=== PATIENT | male | born 1945 | race Caucasian/White ===

== ENCOUNTER 2019-04-28 15:39 | Inpatient (IN) ==
--- NOTE | 2019-04-28 16:48 | EKG Report ---
Test Performed on : 04/28/2019 3:44:11 PM Test Reason : chest pain Blood Pressure : / mmHG Vent. Rate : 070 BPM Atrial Rate : 083 BPM P-R Int : 128 ms QRS Dur : 080 ms QT Int : 370 ms P-R-T Axes : 047 075 069 degrees QTc Int : 399 ms Sinus rhythm. with marked sinus arrhythmia. Nonspecific ST abnormality Abnormal ECG When compared with ECG of 24-MAR-2019 19:27, premature ventricular complexes. are no longer present Nonspecific T wave abnormality, improved in Inferior leads Unconfirmed Result
[2019-04-28 17:53] LABS: BASO# 0.04 X1000 (0.0-0.2); BASO% 0.9 % (0.0-0.8); EOS# 0.27 X1000 (0.0-0.7); EOS% 5.9 % (0.0-10.0); HEMATOCRIT 43.6 % (42.0-52.0); HEMOGLOBIN 14.1 g/dL (14.0-18.0); LYMPH# 1.01 X1000 (1.2-3.4); LYMPH% 21.9 % (20.5-51.1); MCHC 32.3 g/dL (33-37); MCV 92.8 FL (81-99); MONO# 0.39 X1000 (0.11-0.59); MONO% 8.5 % (1.7-9.3); MPV 10.7 FL (7.4-10.4); NEUT% 62.8 % (42.2-75.2); PLT 217 X1000 (130-400); RDW 13.8 % (11.5-14.5); WBC 4.61 X1000 (4.8-10.8)
[2019-04-28] MEDS ORDERED: CATAPRES PO ONE (18:02)
--- NOTE | 2019-04-28 18:12 | PROVIDER DOCUMENTATION ---
This chart was entered by Cesilia Cronin Scribe, acting as scribe for Catherine Graham MD. HPI-Chest Pain - General Source: patient - History of Present Illness-CP Location: reports: central Chest Pain Radiation: reports: no radiation Quality of Pain: reports: pressure Severity in ED: mild Onset/Duration: this morning Timing: still present, improving Context/Activities at Onset: reports: light activity Modifying Factors: improves with: nothing Associated Symptoms: reports: shortness of breath. denies: abdominal pain, back pain, dizziness, fever/chills, nausea, vomiting Nitro Today/Relief: no nitro taken today Aspirin Treatment Today: 325 mg x 1, provided by ED Prior Chest Pain/Cardiac Workup: reports: no prior chest pain Similar Symptoms Previously?: Yes (copd ) Recently Seen Here or By Another Healthcare Provider: Yes (has seen pcp recently) <Catherine Graham - Last Filed: 04/28/19 18:12> <Crow Khoury - Last Filed: 04/28/19 22:26> - General Chief Complaint: Chest Pain Stated Complaint: PRESSURE ON CHEST,COPD,INSOMNIA Time Seen by Provider: 04/28/19 16:21 Allergies/Adverse Reactions: Patient Allergies Allergy/AdvReac Type Severity Reaction Status Date / Time No Known Allergies Allergy Verified 03/20/19 16:40 Home Medications: Home Medication List Medication Instructions Recorded Confirmed Last Taken Type Albuterol Sulfate [Proair Hfa] 2 puff INH PRN PRN 03/20/19 04/28/19 Unknown History Amoxicillin/Potassium Clav 1 tab PO BID 04/28/19 Unknown History [Amox-Clav 500-125 mg Tablet] Methylprednisolone [Medrol Dosepak] 04/28/19 Unknown History Penicillin V Potassium [Penicillin 250 mg PO Q6HR 04/28/19 04/28/19 Unknown History Vk] Pravastatin Sodium 80 mg PO QHS 04/28/19 04/28/19 Unknown History Trazodone HCl 50 mg PO QHS 04/28/19 04/28/19 Unknown History Venlafaxine E.r. [Effexor Xr] 75 mg PO DAILY 04/28/19 04/28/19 Unknown History - History of Present Illness-CP Nature of Presenting Problem: wm presents to the ed with c/o chest pain, sob, insomnia . pt sts he is a recovering alcoholic for 17 years and was given x80 10mg Ambien and between saturday 04/21/04/25 this month he took all his medication. pt sts he can not handle pain medication or sleep aids because he abuses it.pt comes to ed due to chest pressure and insomnia today. sts sob is due to copd and chronic. pt on exam is nontoxic in appearance and is speaking in complete sentence (Catherine Graham) Review of Systems - Adult - REVIEW OF SYSTEMS - ADULT Constitutional: denies: chills, fever Eyes: reports: no symptoms reported Ears, Nose, Mouth & Throat: reports: no symptoms reported Cardiovascular: reports: see HPI, chest pain. denies: palpitations, syncope Respiratory: reports: see HPI, chronic cough, shortness of breath. denies: wheezing Gastrointestinal: denies: abdominal pain, diarrhea, nausea, vomiting Genitourinary: reports: no symptoms reported Musculoskeletal: reports: no symptoms reported Integumentary: reports: no symptoms reported Neurological: denies: dizziness/vertigo, headache/migraines Psychiatric: reports: see HPI, insomnia Endocrine: reports: no symptoms reported Hematologic/Lymphatic: reports: no symptoms reported Allergic/Immunologic: reports: no symptoms reported All Other Systems: Reviewed and Negative <Catherine Graham - Last Filed: 04/28/19 18:12> Past History - Adult - PAST MEDICAL HISTORY-ADULT Review of Records: reports: Old Records Reviewed, Nursing Assessment Review, Medications Reviewed, Social history reviewed & non-contributory. Major Childhood Illnesses: reports: denies history Cardiovascular: reports: HTN (borderline), hyperlipidemia Respiratory: reports: asthma, COPD Gastrointestinal: reports: denies history Genitourinary: reports: kidney stones Musculoskeletal: reports: denies history Hand Dominance: Right Handed Neurological: reports: denies history Psychiatric: reports: anxiety Endocrine/Immune: reports: denies history Other Conditions: reports: denies history - PRIOR SURGERIES/PROCEDURES Surgical/Procedure History: reports: cholecystectomy, orthopedic (extremity) - IMMUNIZATION STATUS Childhood Immunizations: See Nurse Assessment Flu Vaccine: See Nurse Assessment - FAMILY HISTORY Family History: reviewed, not pertinent - SOCIAL HISTORY Smoking: quit greater than 1 year Substance Use: none presently/history of abuse (ETOH and abuses pain medication and sleep aids) Alcohol Use Frequency: sober (former use) Living Situation: alone <Catherine Graham - Last Filed: 04/28/19 18:12> Physical Exam-General - PHYSICAL EXAM-ADULT Initial Vital Signs Reviewed: Yes - CONSTITUTIONAL General Appearance: appears well, alert, no apparent distress (pt is speaking in complete sentences on exam is nontoxic in appearance. pt sts still has mild chest pressure and SOB) - EYES Eyes: PERRL/EOMI, pink conjunctivae - HEAD, EARS, NOSE, MOUTH & THROAT HENMT: moist mucous membranes - NECK Neck: non-tender, full range of motion, supple, normal inspection - RESPIRATORY Respiratory: chest non-tender, lungs clear, normal breath sounds - CARDIOVASCULAR Cardiovascular: normal peripheral pulses, regular rate, rhythm - CHEST (BREASTS) Chest/Breast: no tenderness - GASTROINTESTINAL (ABDOMEN) Abdominal Exam: normal bowel sounds, non tender, soft - LYMPHATIC Lymphatic: no adenopathy - MUSCULOSKELETAL Back Exam: normal inspection, no CVA tenderness, no vertebral tenderness Extremity: normal range of motion, non-tender, normal gait, normal inspection - SKIN Integumentary: normal color, normal turgor, warm/dry - NEUROLOGIC Neurologic: grossly normal - PSYCHIATRIC Psych/Mental Status: normal mood/affect, normal thought content, normal thought process, oriented x 3 <Catherine Graham - Last Filed: 04/28/19 18:12> - HEART Score HEART Score: History: Slightly Suspicious HEART Score: ECG: Normal HEART Score: Age: > or = 65 Years HEART Score: Risk Factors for Atherosclerotic Disease: 1 or 2 Risk Factors HEART Score: Troponin: < or = Normal Limit Total HEART Score:: 3 <Jazmyne Grahamanila Porter - Last Filed: 04/28/19 18:12> Progress - REASSESSMENT Reassessment #1 Time Reassessed: 16:36 Status: improving - EKG 1 Time of EKG reading by physician:: 15:44 EKG Read and Signed by:: Catherine Graham EKG Interpretation (*Must complete 3 of following elements*): Abnormal Rate: 70 Rhythm: sinus rhythm with marked sinus arrhythmia [place]: normal QRS: normal NV Interval: normal ST Wave: normal <Jazmyne Grahami [place] - Last Filed: 04/28/19 18:12> - PLAN OF CARE/RESULTS Result Diagrams: 04/28/19 17:50 04/28/19 17:50 - REASSESSMENT Reassessment #2 Time Reassessed: 20:10 Status: improving (continues to have CP And SOB, CXR results d/w pt. will call hospitalist to discuss CTA as d-dimer can be elevated from PNA.) - CONSULTS/PCP/HOSPITALIST Notification #1 *Consult/PCP/Hospitalist*: Dr Simms Time Discussed: 20:35 Consult Disposition: other (advised CT angiogram to r/o PE. will call back after CTA chest resulted.) #2 Consult: DR Simms Time Discussed: 22:15 Consult Disposition: Admit (saw pt in ED, admit for obs) - CHANGE OF SHIFT REPORT (ED Provider) 1 Report Given and Care Transferred to:: Dr Khoury Time of Transfer: 19:00 Items Pending: Labs, XRAY Results <Crow Khoury - Last Filed: 04/28/19 22:26> - PLAN OF CARE/RESULTS Progress/Plan/Lab Results: Vital Signs - 8 hr 04/28/19 15:44 04/28/19 16:06 04/28/19 16:08 Temperature 98.1 F Pulse Rate 87 77 80 Respiratory Rate 18 13 18 Blood Pressure 177/95 165/101 O2 Sat by Pulse Oximetry 95 93 L 94 L 04/28/19 16:30 04/28/19 17:02 04/28/19 17:31 Temperature Pulse Rate 74 61 76 Respiratory Rate 13 16 18 Blood Pressure 181/101 192/106 O2 Sat by Pulse Oximetry 96 94 L 94 L 04/28/19 17:57 04/28/19 18:01 04/28/19 18:26 Temperature Pulse Rate 64 59 L 68 Respiratory Rate 18 12 19 Blood Pressure 185/107 169/108 164/101 O2 Sat by Pulse Oximetry 93 L 94 L 94 L 04/28/19 18:31 04/28/19 19:06 04/28/19 19:30 Temperature Pulse Rate 73 88 69 Respiratory Rate 20 18 15 Blood Pressure 165/116 131/81 O2 Sat by Pulse Oximetry 93 L 94 L 93 L 04/28/19 20:00 04/28/19 20:30 04/28/19 21:00 Temperature Pulse Rate 66 74 75 Respiratory Rate 19 19 17 Blood Pressure 157/82 142/88 140/74 O2 Sat by Pulse Oximetry 94 L 93 L 93 L Laboratory Results - last 24 hr 04/28/19 04/28/19 04/28/19 17:00 17:50 17:50 WBC 4.61 L RBC 4.70 Hgb 14.1 Hct 43.6 MCV 92.8 MCH 30.0 MCHC 32.3 L RDW Std Deviation 13.8 Plt Count 217 MPV 10.7 H Immature Gran % (Auto) 0.0 Neut % (Auto) 62.8 Lymph % (Auto) 21.9 [place] % (Auto) 8.5 Eos % (Auto) 5.9 Baso % (Auto) 0.9 H Immature Gran # (Auto) 0.00 Neut # (Auto) 2.90 Lymph # (Auto) 1.01 L [place] # (Auto) 0.39 Eos # (Auto) 0.27 Baso # (Auto) 0.04 D-Dimer, Quantitative 1.95 H Specimen Type Sample Site pH pCO2 pO2 HCO3 Base Excess Oxyhemoglobin ABG O2 Sat (Calculated) ABG O2 Saturation ABG Carboxyhemoglobin ABG Methemoglobin [place] Test A-a O2 Difference Total Hemoglobin Lactate Blood Gas Modality FiO2 % Sodium 143 Potassium 3.2 L Chloride 100 Carbon Dioxide 27 Anion Gap 16 BUN 4 L Creatinine 0.9 Estimated GFR/1.73 m2 > 60 BUN/Creatinine Ratio 4 Glucose 108 H Calculated Osmolality 282 Calcium 9.7 Total Bilirubin 0.78 AST 15 ALT 12 Alkaline Phosphatase 80 Creatine Kinase 94 Troponin T Total Protein 6.7 Albumin 4.3 Globulin 2.4 Albumin/Globulin Ratio 1.8 Amylase 30 Lipase 17 Urine Source Urine Color Urine Turbidity Urine pH Ur Specific [place] Urine Protein Ur Glucose (Stick) Ur Ketones (Stick) Urine Blood Urine Nitrite Urine Bilirubin Urobilinogen Dipstick Urine Leukocytes Urine WBC (Auto) Urine RBC (Auto) U Epithel Cells (Auto) Urine Bacteria (Auto) 04/28/19 04/28/19 04/28/19 17:50 18:00 19:31 WBC RBC Hgb Hct MCV MCH MCHC RDW Std Deviation Plt Count MPV Immature Gran % (Auto) Neut % (Auto) Lymph % (Auto) [place] % (Auto) Eos % (Auto) Baso % (Auto) Immature Gran # (Auto) Neut # (Auto) Lymph # (Auto) [place] # (Auto) Eos # (Auto) Baso # (Auto) D-Dimer, Quantitative Specimen Type ARTERIAL Sample Site R RADIAL pH 7.50 H pCO2 34 L pO2 71 HCO3 27.6 H Base Excess 3.6 H Oxyhemoglobin 93.9 L ABG O2 Sat (Calculated) 17.8 ABG O2 Saturation 96.8 ABG Carboxyhemoglobin 2.00 ABG Methemoglobin 1.0 [place] Test YES A-a O2 Difference 36.0 Total Hemoglobin 13.5 Lactate 1.10 Blood Gas Modality ROOM AIR FiO2 % 21.0 Sodium Potassium Chloride Carbon Dioxide Anion Gap BUN Creatinine Estimated GFR/1.73 m2 BUN/Creatinine Ratio Glucose Calculated Osmolality Calcium Total Bilirubin AST ALT Alkaline Phosphatase Creatine Kinase Troponin T < 0.010 Total Protein Albumin Globulin Albumin/Globulin Ratio Amylase Lipase Urine Source CLEAN CATCH Urine Color YELLOW Urine Turbidity CLEAR Urine pH 8.5 Ur Specific [place] 1.017 Urine Protein 50 A Ur Glucose (Stick) NEGATIVE Ur Ketones (Stick) 40 A Urine Blood NEGATIVE Urine Nitrite NEGATIVE Urine Bilirubin NEGATIVE Urobilinogen Dipstick NORMAL Urine Leukocytes NEGATIVE Urine WBC (Auto) <10 Urine RBC (Auto) <10 U Epithel Cells (Auto) <10 Urine Bacteria (Auto) NEGATIVE Orders Category Date Time Status Saline Loc DIRECTED Care 04/28/19 16:35 Active NPO Diet 04/28/19 16:35 Active CHEST-PORTABLE [RAD] Stat Exams 04/28/19 18:[address] ANGIOGRM PULMONARY ARTERIES [CT] Stat Exams 04/28/19 20:40 Completed ABG [RESP] Routine Lab 04/28/19 19:31 Completed AMYLASE [CHEM] Stat Lab 04/28/19 17:50 Completed CBC WITH ELECTRONIC DIFF [HEME] Stat Lab 04/28/19 17:50 Completed CK PROFILE [SP CHEM] Stat Lab 04/28/19 17:50 Completed COMPREHENSIVE METABOLIC PANEL [CHEM] Stat Lab 04/28/19 17:50 Completed D-DIMER [COAG] Stat Lab 04/28/19 17:00 Completed LIPASE [CHEM] Stat Lab 04/28/19 17:50 Completed TROPONIN T Stat Lab 04/28/19 17:50 Completed URINALYSIS W/POSS RFLX CULT [URINALYSIS] Stat Lab 04/28/19 18:00 Completed Albuterol 2.5MG/Ipratrop 0.5MG [Duoneb (A & A)] Med 04/28/19 18:32 Discontinued 3 ml INH NOW ONE Budesonide [Pulmicort] Med 04/28/19 18:33 Discontinued 0.5 mg INH NOW ONE Clonidine [Catapres] Med 04/28/19 18:02 Discontinued 0.1 mg PO NOW ONE Aerosol Treatments Routine Oth 04/28/19 18:32 Completed Aerosol Treatments Routine Oth 04/28/19 18:33 Completed Aerosol Treatments Stat Oth 04/28/19 18:32 Completed Aerosol Treatments Stat Oth 04/28/19 18:33 Completed EKG [EKG] Stat Ther 04/28/19 16:35 Draft Departure <Catherine Graham - Last Filed: 04/28/19 18:12> - Departure Date of Disposition Decision: 04/28/19 Time of Disposition Decision: 22:25 Certified Medical Emergency: Emergent - Critical Care Note This patient required my direct & personal management of CC.: No <Crow Khoury - Last Filed: 04/28/19 22:26> - Departure DIAGNOSIS: Dyspnea, Atelectasis, Chest pain Disposition: ADMITTED INPATIENT 09 Condition: Stable Referrals and Follow-Ups: Oumou Torres MD [Primary Care Provider] - Attestation - Physician/ RUSS Attestation Patient care was provided by Advanced Practice Provider:: No The physician spent face to face time with patient:: Yes Advanced Practice Provider documentation review:: Supervising physician onsite and consulted in the evaluation and care of this patient. The physician did have a face to face encounter with the patient. <Catherine Graham - Last Filed: 04/28/19 18:12> This chart was documented by the indicated scribe, (Cesilia Cronin Scribe) and accurately reflects the services I performed and decisions made by Santos littlejohn Mai Huu, MD, as attested by the provider's signature.
[2019-04-28 18:13] LABS: AGAP 16; ALB/GLOB RATIO 1.8; ALBUMIN 4.3 g/dL (3.5-5.0); ALKALINE PHOSPHATASE 80 U/L (32-122); AMYLASE 30 U/L (20-200); BUN 4 mg/dL (8-22); CALCIUM 9.7 mg/dL (8.8-10.2); CHLORIDE 100 mmol/L (98-107); CK PROFILE 94 U/L (24-204); COSMO 282; CREATININE 0.9 mg/dL (0.7-1.2); ESTIMATED GFR > 60; GLUCOSE 108 mg/dL (70-104); GOT 15 U/L (10-34); GPT 12 U/L (10-44); LIPASE 17 U/L (13-60); POTASSIUM 3.2 mmol/L (3.5-5.1); SODIUM 143 mmol/L (136-145); TCO2 27 mmol/L (25-35); TOTAL BILIRUBIN 0.78 mg/dL (0.20-1.00); TOTAL PROTEIN 6.7 g/dL (6.3-8.3)
[2019-04-28 18:20] LABS: URINE SOURCE CLEAN CATCH
[2019-04-28 18:25] LABS: BILIRUBIN URINE NEGATIVE (NEGATIVE); BLOOD URINE NEGATIVE (NEGATIVE); COLOR YELLOW; GLUCOSE URINE NEGATIVE (NEGATIVE); KETONE URINE 40 mg/dL (NEGATIVE); LEUKOCYTES URINE NEGATIVE (NEGATIVE); NITRITE URINE NEGATIVE (NEGATIVE); PH URINE 8.5; PROTEIN URINE 50 mg/dL (NEGATIVE); SP GRAVITY URINE 1.017; TURBIDITY URINE CLEAR (CLEAR); UR EPITHELIAL CELLS <10 /HPF (<10); URINE BACTERIA NEGATIVE /HPF; URINE RBC <10 /HPF (<10); URINE WBC <10 /HPF (<10); UROBILINOGEN URINE NORMAL (NORMAL)
[2019-04-28] MEDS ORDERED: DUONEB (A & A) INH ONE (18:32)
[2019-04-28] MEDS ORDERED: PULMICORT INH ONE (18:33)
--- NOTE | 2019-04-28 18:53 | Diag Imaging Result Doc PS360 ---
EXAM: CHEST-PORTABLE 04/28/2019 HISTORY: shortness of breath TECHNIQUE: AP upright portable at 1842 COMMENT: There is COPD. There is ill-defined opacity in the left base which was not present on 05/02/2018. The heart size and pulmonary vascularity are within normal limits. IMPRESSION: Left lower lobe pneumonia. Electronically signed by Surinder Baird 04/28/2019 6:51 PM
[2019-04-28 19:35] LABS: ALLEN TEST YES; BE 3.6 mmoll (-3.0-3.0); BLOOD TYPE ARTERIAL; HCO3-(ACT) 27.6 mmoll (20.0-26.0); O2(CT) 17.8 mL/dL (15.0-23.0); O2HB 93.9 % (95.0-99.0); PCO2(98.6) 34 mmHg (35-45); PO2(98.6) 71 mmHg (60-100); SAMPLE BLOOD; SAO2 96.8 % (95.0-100.0); THB 13.5 g/dL (11.5-17.4)
[2019-04-28 19:41] LABS: MODALITY ROOM AIR
--- NOTE | 2019-04-28 21:54 | Diag Imaging Result Doc PS360 ---
EXAM: CT ANGIOGRM PULMONARY ARTERIES 04/28/2019 HISTORY: elevated d-dimer, SOB, CP. LLL pneumonia on CXR TECHNIQUE: This exam was performed using automated exposure control, adjustment of mA or kV according to patient size, and/or use of iterative reconstruction technique. COMMENT: The current study is compared with the previous examination of 11/17/2018. There are no filling defects the pulmonary arteries. 3-D MIPS were performed. There is no evidence of significant adenopathy. The aorta is normal in caliber without evidence of dissection. There is some questionable mucosal thickening in the distal esophagus. There are minimal atelectatic changes present in the lung bases particularly in the right middle lobe the right lower lobe and the posterior costophrenic sulci of both lower lobes. This is worse than on the previous study. There is apparent COPD. The regional skeleton is intact. There is no evidence of abnormal fluid collections. IMPRESSION: No evidence of pulmonary emboli. Bibasilar atelectasis. Questionable distal esophagitis. COPD. Electronically signed by Surinder Baird 04/28/2019 9:52 PM
[2019-04-28] MEDS ORDERED: KLOR-CON PO ONE (23:07)
--- NOTE | 2019-04-28 23:21 | HISTORY AND PHYSICAL ---
PRIMARY CARE PHYSICIAN: Dr. Zay Torres. CHIEF COMPLAINT: Chest pain, shortness of breath x2 days. HISTORY OF PRESENTING ILLNESS: A 73-year-old male with a history of COPD, hyperlipidemia, hypertension and depression, who had presented to emergency department with 2 days history of having chest pain shortness of breath. The patient states that he was having a pressure-like sensation in his chest and he was having shortness of breath, such that he was coughing and was having difficulty breathing. He was evaluated in the emergency department. Initially had a chest x-ray done, which did show suspicion of pneumonia on the left lower lobe. The patient also had a CT angiogram done due to mildly elevated D-dimer, which did show no evidence of any pulmonary emboli, but shows bilateral atelectasis and COPD. Due to these findings, it was thought that we will place him for observation for further evaluation and management. At the time of my examination, patient denied any headache, fever, chills, hemoptysis, melena, but complained of chest pain and shortness of breath. PAST MEDICAL HISTORY: Includes COPD, hyperlipidemia, hypertension, depression, insomnia. PAST SURGICAL HISTORY: Right carpal tunnel surgery, right elbow surgery, cholecystectomy, colon surgery, left knee surgery, right rotator cuff surgery, hernia repair. ALLERGIES: No known drug allergies. CURRENT MEDICATIONS: Albuterol inhaler 2 puffs inhalation q.6 hours, Medrol Dosepak taper, penicillin V q.6 hours, pravastatin 80 mg p.o. at bedtime, trazodone 50 mg p.o. at bedtime, Effexor 75 mg p.o. daily. SOCIAL HISTORY: He is a former smoker. He is a recovering alcoholic. No history of drug use. FAMILY HISTORY: No history of coronary artery disease. REVIEW OF SYSTEMS: Fourteen-point review of systems is as in HPI. Other systems negative. PHYSICAL EXAMINATION: GENERAL: Cooperative, friendly male. He is resting more comfortably now. VITAL SIGNS: Temperature 98.1 degrees, pulse 87, respiration 18, blood pressure 177/95. HEENT: Atraumatic, normocephalic. Extraocular movements intact. PERRLA. NECK: No masses. CHEST: Bibasilar rales. CARDIOVASCULAR: Regular rate and rhythm. ABDOMEN: Soft. Positive bowel sounds. EXTREMITIES: No edema. NEUROLOGIC: He is awake, alert, oriented x3. GENITOURINARY: No bladder distention. SKIN: Warm. LABORATORY AND STUDIES: WBCs 4.61, hemoglobin 14.1, hematocrit 43.6, platelets 217,000. Sodium 143, potassium 3.2, chloride 100, CO2 is 27, BUN is 4, creatinine 0.9. Glucose 108. Chest x-ray shows left lower lobe pneumonia. CT angiogram, no evidence of any pulmonary emboli. Bibasilar atelectasis and COPD. ASSESSMENT: This is a 73-year-old male with a history of chronic obstructive pulmonary disease, hypertension, hyperlipidemia and depression, who presented to emergency department with 2 days history of chest pain and shortness of breath. He was evaluated in the emergency department and due to his presenting symptoms, we will place him for observation for further evaluation and management. 1. Chest pain, seems atypical. 2. Mild chronic obstructive pulmonary disease exacerbation. 3. Possible pneumonia. 4. Hypertension. 5. Depression. PLAN: 1. We will admit patient to medical floor with telemetry. 2. We will continue with cardiac workup. Check EKG, serial cardiac enzymes. Have patient continue on aspirin. Will use sublingual nitroglycerin p.r.n. chest pain. 3. We will continue with DuoNebs and IV antibiotics. 4. We will check blood cultures. 5. We will monitor blood pressure closely. Resume antihypertensive agent. 6. Restart other home medications. 7. We will put patient on DVT prophylaxis with Lovenox. 8. We will continue to follow and reassess. Make further recommendation based on patient's clinical course. cc: Brandon Simms MD
[2019-04-29] MEDS ORDERED: ZOFRAN IV PRN (03:00)
[2019-04-29] MEDS ORDERED: ASPIRIN PO ONE (03:00)
[2019-04-29] MEDS: DUONEB (A & A) INH SCH ×3 (03:43→07:27)
[2019-04-29] MEDS: LOVENOX SUBQ SCH (03:50)
[2019-04-29] MEDS: LEVAQUIN 500 MG/D5W 500 MG/100 ML IVPB IV SCH (04:00)
[2019-04-29 07:17] LABS: BASO# 0.05 X1000 (0.0-0.2); BASO% 0.9 % (0.0-0.8); EOS# 0.28 X1000 (0.0-0.7); EOS% 5.2 % (0.0-10.0); HEMOGLOBIN 12.5 g/dL (14.0-18.0); LYMPH# 1.17 X1000 (1.2-3.4); LYMPH% 21.5 % (20.5-51.1); MCH 29.6 PG (27-31); MCHC 32.1 g/dL (33-37); MCV 92.4 FL (81-99); MONO# 0.49 X1000 (0.11-0.59); MPV 10.4 FL (7.4-10.4); NEUT# 3.44 X1000 (1.4-6.5); NEUT% 63.4 % (42.2-75.2); PLT 201 X1000 (130-400); RBC 4.22 XMIL (4.7-6.1); RDW 13.6 % (11.5-14.5); WBC 5.43 X1000 (4.8-10.8)
[2019-04-29 07:42] LABS: AGAP 12; BUN 6 mg/dL (8-22); CALCIUM 8.8 mg/dL (8.8-10.2); CHLORIDE 105 mmol/L (98-107); CHOLESTEROL 147 mg/dL (0-200); COSMO 283; CREATININE 0.9 mg/dL (0.7-1.2); ESTIMATED GFR > 60; GLUCOSE 103 mg/dL (70-104); HDL 46 mg/dL (35-55); LDL 88 mg/dL; POTASSIUM 3.2 mmol/L (3.5-5.1); SODIUM 143 mmol/L (136-145); TCO2 26 mmol/L (25-35); TRIGLYCERIDES 64 mg/dL (39-160); VLDL 13 mg/dL
[2019-04-29] MEDS ORDERED: PENICILLIN VK PO SCH (08:00)
[2019-04-29] MEDS ORDERED: EFFEXOR XR PO SCH (09:00)
[2019-04-29] MEDS ORDERED: NITROGLYCERIN SL PRN (09:50)
[2019-04-29] MEDS: PRILOSEC PO SCH (10:00)
[2019-04-29] MEDS: NORVASC PO SCH (11:21)
[2019-04-29] MEDS: KLOR-CON PO SCH ×2 (15:02→18:10)
[2019-04-29] MEDS: PEPCID PO SCH (15:07)
[2019-04-29] MEDS: PREDNISONE PO SCH (15:07)
--- NOTE | 2019-04-29 15:13 | EKG Report ---
Test Performed on : 04/29/2019 1:35:43 PM Test Reason : CP Blood Pressure : / mmHG Vent. Rate : 056 BPM Atrial Rate : 056 BPM P-R Int : 144 ms QRS Dur : 086 ms QT Int : 440 ms P-R-T Axes : 017 070 076 degrees QTc Int : 424 ms Sinus bradycardia. with sinus arrhythmia. Nonspecific T wave abnormality Abnormal ECG Confirmed by Manny COSME, Adriel Zamorano ([id number]) on 04/30/2019 7:27:02 AM
--- NOTE | 2019-04-29 15:16 | CARDIOLOGY CONSULTATION ---
DATE: 04/29/2019 CHIEF COMPLAINT: Chest pain, shortness of breath. HISTORY OF PRESENT ILLNESS: Mr. Tariq is a 73-year-old male with a history of hypertension, severe COPD, who presented with a discomfort in his chest that has been present for roughly 2 days straight, pressure-like in the midchest along with shortness of breath. He reported difficulty breathing with the episodes and some sort of a pleuritic component as well. There is no clear exertional component. In addition, he has had some difficulty tolerating oral intake with this discomfort. PAST MEDICAL HISTORY: 1. Significant for COPD. 2. Hyperlipidemia. 3. Hypertension. SOCIAL HISTORY: Former smoker. Has been sober for 17 years. Prior to that was alcoholic. No history of illicit drugs. FAMILY HISTORY: No history of early coronary disease. REVIEW OF SYSTEMS: A 10 system review of systems is negative except for those mentioned in the HPI. PHYSICAL EXAMINATION: Patient is afebrile. Heart rate 67, blood pressure 157/91.General: He is in no acute distress. HEENT: Oropharynx moist. Poor dentition. Eye examination shows pink conjunctivae, white sclerae. Neck: Shows no obvious thyromegaly or thyroid tenderness. Cardiovascular: He sounds to be in a regular rate and rhythm. He has no obvious murmurs. He has no S3. He has no lower extremity edema. Chest: He has bilateral end-expiratory wheezes heard throughout all lung guevara. Abdomen: Soft, nontender, nondistended. He has no obvious organomegaly. Skin: Warm and dry throughout without any rashes. Neurological: He is moving all extremities well. PERTINENT DATA: His EKG shows a sinus rhythm. His pulmonary arteriogram demonstrates no pulmonary emboli, questionable distal esophagitis, bibasilar atelectasis. White count 5.4, hematocrit 39, platelet count 201,000. Sodium is 143, potassium 3.2, BUN 6, creatinine 0.9. Cardiac enzymes are negative. His LDL is 88. ASSESSMENT: Mr. Tariq is a 73-year-old gentleman who presented with chest discomfort. PLAN: At this point will check an echocardiogram. We will check an EKG. I will initiate him on some prednisone given his expiatory wheezes. In addition, we will also place him on an H2 wilfrido given his issues with discomfort while eating as well as his pulmonary arteriogram which demonstrated some distal esophagitis. Further recommendations to follow. cc: MD Edelmira Prieto MD
[2019-04-29] MEDS: ALBUTEROL NEB INH SCH ×2 (15:47→22:44)
[2019-04-29] MEDS: FLEXERIL PO SCH (20:59)
[2019-04-29] MEDS: EFFEXOR XR PO SCH (20:59)
[2019-04-29] MEDS: PRAVACHOL PO SCH (20:59)
[2019-04-29] MEDS: DESYREL PO SCH (20:59)
[2019-04-30] MEDS: ALBUTEROL NEB INH SCH ×4 (03:22→21:06)
[2019-04-30] MEDS: LEVAQUIN 500 MG/D5W 500 MG/100 ML IVPB IV SCH (03:35)
[2019-04-30] MEDS: LOVENOX SUBQ SCH (03:35)
[2019-04-30] MEDS: PRILOSEC PO SCH (06:11)
[2019-04-30] MEDS: NORVASC PO SCH (09:08)
[2019-04-30] MEDS: KLOR-CON PO SCH ×3 (09:08→16:51)
[2019-04-30] MEDS: PREDNISONE PO SCH (09:08)
[2019-04-30] MEDS: PEPCID PO SCH (09:08)
--- NOTE | 2019-04-30 16:01 | CARDIOLOGY PROGRESS NOTE ---
DATE: 04/30/2019 SUBJECTIVE: Mr. Tariq reports he feels much better. He slept well last night. His breathing has improved. PHYSICAL EXAMINATION: Afebrile. Heart rate 70, blood pressure 148/85. General: No acute distress. Cardiovascular: He sounds to be in a regular rate and rhythm. He has no murmurs. He has no S3. He has no lower extremity edema. Chest: He had minimal bilateral end-expiratory wheezes throughout the lung guevara. This was much improved from yesterday. He had no increased work of breathing. His abdomen is soft, nontender. PERTINENT DATA: He has no new laboratory data from today. He has a echocardiogram which is currently pending. ASSESSMENT: Mr. Tariq is a 73-year-old gentleman who presented with complaints of shortness of breath and chest tightness. PLAN: He had marked expiratory wheezes yesterday which improved significantly with steroids, antibiotics and nebulizers. In addition, he reports improvement with the H2 wilfrido. I will review his echocardiogram and if it is unremarkable, then he could likely be discharged home tomorrow from a cardiovascular standpoint. ADDENDUM: His echo demonstrated a normal EF with no significant valvular abnormalities. His symptoms seem to be responding to treatment of his COPD. Please contact us if we can be of further assistance. cc: MD Edelmira Prieto MD MTDD
--- NOTE | 2019-04-30 16:25 | ECHO REPORT ---
ORDER DATE: 04/30/2019 INDICATION: Chest pain. FINDINGS: 1. Right atrium appears normal in size. 2. Mild tricuspid regurgitation. RV systolic pressure 38. 3. Normal RV size and systolic function. 4. Mild pulmonic insufficiency. 5. Mild left atrial enlargement with a dimension of 4.8 cm. Volume index of 33. 6. No mitral valve prolapse. Mild mitral regurgitation. No mitral stenosis. 7. Normal LV size, end-diastolic dimension of 4.7. Mild left ventricular hypertrophy with a posterior and interventricular septal wall thickness 1.2 cm each. Normal LV systolic function. Estimated EF of 55% to 60% percent with normal wall motion. 8. Aortic valve opens well. It is trileaflet. No evidence of stenosis or insufficiency. 9. Aorta appears normal in visualized segments. 10. No pericardial effusion identified. cc: MD Edelmira Prieto MD
--- NOTE | 2019-04-30 17:16 | EKG Report ---
Test Performed on : 04/30/2019 05:59:06 AM Test Reason : CP Blood Pressure : / mmHG Vent. Rate : 060 BPM Atrial Rate : 060 BPM P-R Int : 134 ms QRS Dur : 086 ms QT Int : 414 ms P-R-T Axes : 064 067 062 degrees QTc Int : 414 ms Normal sinus rhythm. Normal ECG Confirmed by Manny COSME, Adriel Zamorano ([id number]) on 05/01/2019 3:30:06 PM
[2019-04-30] MEDS: DESYREL PO SCH (20:40)
[2019-04-30] MEDS: EFFEXOR XR PO SCH (20:40)
[2019-04-30] MEDS: FLEXERIL PO SCH (20:40)
[2019-04-30] MEDS: PRAVACHOL PO SCH (20:40)
[2019-05-01] MEDS: LOVENOX SUBQ SCH (03:14)
[2019-05-01] MEDS: LEVAQUIN 500 MG/D5W 500 MG/100 ML IVPB IV SCH (03:15)
[2019-05-01] MEDS: ALBUTEROL NEB INH SCH ×4 (03:27→21:52)
[2019-05-01 05:40] LABS: HEMATOCRIT 37.4 % (42.0-52.0); HEMOGLOBIN 12.5 g/dL (14.0-18.0)
[2019-05-01 06:31] LABS: CALCIUM 8.4 mg/dL (8.8-10.2); CREATININE 1.2 mg/dL (0.7-1.2); POTASSIUM 3.3 mmol/L (3.5-5.1)
[2019-05-01] MEDS: NORVASC PO SCH (08:40)
[2019-05-01] MEDS: PEPCID PO SCH (08:40)
[2019-05-01] MEDS: PREDNISONE PO SCH (08:41)
[2019-05-01] MEDS: KLOR-CON PO SCH ×3 (08:41→16:32)
--- NOTE | 2019-05-01 10:12 | Diag Imaging Result Doc PS360 ---
CHEST-2 VIEWS - 05/01/2019 INDICATION: SOB COMPARISON: 04/28/2019 FINDINGS: There is severe COPD. There is extensive linear opacity in the lung bases bilaterally most likely atelectasis. Heart size and pulmonary vascularity is normal. No pneumothorax or pleural effusion. IMPRESSION: Severe COPD. Extensive linear atelectasis in the lung bases. Electronically signed by Ridge Cameron 05/01/2019 10:10 AM
[2019-05-01] MEDS: SOLU-MEDROL IV SCH ×2 (14:02→21:09)
--- NOTE | 2019-05-01 16:13 | PROGRESS NOTE ---
DATE: 05/01/2019 SUBJECTIVE: Mr. Tariq was admitted to [facility] with an acute COPD exacerbation. Clinically, he has made slow improvement. He continues with a persistent, nonproductive cough and wheezing with forced expiration. He denies any shortness of breath with rest but tends to become more short of breath when walking in the halls or walking to the bathroom. His chest x-ray demonstrated clear lung guevara with scar tissue. No infiltrates were noted. A CT scan of the pulmonary angiogram demonstrated no evidence of PTE on admission. He does have a history of depression. He is not sleeping well at night. His moods are fluctuating. He denies any suicidal or homicidal ideation. He is currently taking generic Effexor 75 mg daily. He does have a history of hypertension. His blood pressure is fluctuating. Systolic blood pressures have been in the 140s and 150s, whereas his diastolic blood pressure has been in the 80s. He denies any chest pain, palpitations, or anginal equivalents. OBJECTIVE: Vital signs: Temperature 98.1 degrees, pulse 69, respirations 21, BP 152/81. CV: Regular rate and rhythm. Lungs: End-expiratory wheezing with forced expiration. Abdomen: Soft, nontender, with active bowel sounds. ASSESSMENT AND PLAN: 1. Acute chronic obstructive pulmonary disease exacerbation. Clinically he is better. He is still having some wheezing with forced expiration. We will continue nebulizer treatments and I will resume IV steroids. I am going to begin Advair 250/50 one puff b.i.d. 2. Hypertension. Blood pressure is too high at times. I will increase the amlodipine to 10 mg daily. 3. Depression. I will increase the Effexor XR to 150 mg daily. cc: Edelmira Torres MD
[2019-05-01] MEDS: ADVAIR 250/50 DISKUS INH SCH (19:43)
[2019-05-01] MEDS: EFFEXOR XR PO SCH (21:09)
[2019-05-01] MEDS: DESYREL PO SCH (21:09)
[2019-05-01] MEDS: PRAVACHOL PO SCH (21:09)
[2019-05-02] MEDS: LOVENOX SUBQ SCH (03:27)
[2019-05-02] MEDS: LEVAQUIN 500 MG/D5W 500 MG/100 ML IVPB IV SCH (03:27)
[2019-05-02] MEDS: ALBUTEROL NEB INH SCH ×4 (06:23→20:37)
[2019-05-02] MEDS: SOLU-MEDROL IV SCH ×3 (06:31→21:46)
[2019-05-02] MEDS: ADVAIR 250/50 DISKUS INH SCH (08:08)
[2019-05-02] MEDS: PEPCID PO SCH (10:45)
[2019-05-02] MEDS: KLOR-CON PO SCH (10:46)
[2019-05-02] MEDS: NORVASC PO SCH (10:46)
[2019-05-02] MEDS: SPIRIVA INH SCH (15:44)
[2019-05-02] MEDS: SYMBICORT 160/4.5 MICROGM INHALER INH SCH (20:37)
[2019-05-02] MEDS: DESYREL PO SCH (21:43)
[2019-05-02] MEDS: PRAVACHOL PO SCH (21:43)
[2019-05-02] MEDS: EFFEXOR XR PO SCH (21:43)
[2019-05-03] MEDS: LEVAQUIN 500 MG/D5W 500 MG/100 ML IVPB IV SCH (03:27)
[2019-05-03] MEDS: LOVENOX SUBQ SCH (03:27)
[2019-05-03] MEDS: ALBUTEROL NEB INH SCH ×2 (03:30→08:18)
[2019-05-03] MEDS: SOLU-MEDROL IV SCH ×2 (06:36→13:32)
[2019-05-03] MEDS: SPIRIVA INH SCH (08:18)
[2019-05-03] MEDS: SYMBICORT 160/4.5 MICROGM INHALER INH SCH (08:18)
[2019-05-03] MEDS: PEPCID PO SCH (09:37)
[2019-05-03] MEDS: NORVASC PO SCH (09:38)
[2019-05-03] MEDS ORDERED: PNEUMOVAX 23 IM ONE (12:30)
[2019-05-03 12:54] VITALS: BP 162/88
--- NOTE | 2019-05-05 19:58 | DISCHARGE SUMMARY ---
ADMISSION DATE: 04/29/2019 DISCHARGE DATE: 05/03/2019 DISCHARGE DIAGNOSES: 1. Chronic obstructive pulmonary disease with acute exacerbation. 2. Personal history of nicotine dependence in the past. 3. Essential hypertension. 4. Gastroesophageal reflux disease. 5. Depression discharge. 6. Chest pain. 7. Mixed hyperlipidemia. DISCHARGE INSTRUCTIONS: 1. Return to clinic in 1 week to see me, Dr. Zay Torres, in anticipation of a transition of care visit. 2. Activity as tolerated. 3. Healthy heart diet. 4. Medications: Amlodipine 5 mg daily. Pepcid 40 mg daily. Spiriva 1 inhalation daily. Trazodone 50 mg at bedtime p.r.n. insomnia. Effexor XR 150 mg daily, Symbicort 160/4.5 two puffs b.i.d., Pro Air HFA inhaler 2 puffs q.6 hours p.r.n. shortness of breath. 5. Pravastatin 80 mg at bedtime. DISCHARGE PHYSICAL EXAMINATION: General: This is a well-developed, well-nourished, 73-year-old gentleman in no apparent distress. Temperature 98.1 degrees, pulse 79, respirations 14, BP 150/81. Cardiovascular: Regular rate and rhythm. Lungs: Clear. Abdomen: Soft, nontender, with active bowel sounds. No hepatosplenomegaly. No abdominal bruits. HOSPITAL COURSE: Mr. Andrey Tariq was initially admitted to [facility] with a 2-day history of chest pain. He was admitted as an outpatient. He ruled out for myocardial ischemia by serial enzymes. Cardiology was consulted to see the patient and a 2D echocardiogram demonstrated normal LV size with an ejection with an estimated ejection fraction of 55% to 60 percent. No wall motion abnormalities were noted. Because of the chest pain and dyspnea a D-dimer was drawn in the ER, the D-dimer was elevated at 1.95. A subsequent pulmonary arteriogram demonstrated no evidence of deep venous thrombosis or pneumonia. The patient has a longstanding history of COPD. He is a former smoker. He was with complaint of shortness of breath, pleuritic chest pain and diffuse wheezing. His initial chest x-ray was suspicious for an infiltrate but a followup CT angiogram demonstrated atelectasis. There was no evidence of an infiltrate. The patient was treated with supplemental O2, DuoNeb nebulizer treatments, and IV methylprednisolone while continuing his regular home medicines of Symbicort and Spiriva. Over the course of the next several days, his breathing continued to improve. His wheezing and cough resolved. He was gradually weaned off O2 and IV methylprednisolone without regression of his symptoms. He will be continued on Symbicort 160/4.5 two puffs b.i.d., and Spiriva 1 inhalation daily. He will continue ProAir HFA inhaler 2 puffs q.6 hours p.r.n. shortness of breath prior to discharge. His immunization statues was reviewed. He has had a previous flu vaccine on 04/07/2019. He had a Prevnar vaccination on 09/08/2017. He was due for a Pneumovax booster which was administered on 05/03/2019. He does have a longstanding history of depression. He has been struggling emotionally. He has had bouts of insomnia. He has difficulty falling asleep and staying asleep. Moods are fluctuating. He denies any suicidal or homicidal ideation. We increased the Effexor XR to 150 mg daily and gave him low-dose trazodone 50 mg at bedtime p.r.n. insomnia. DISPOSITION: Having reached maximum hospital benefit, the patient was discharged in stable condition. cc: Edelmira Torres MD
== END 2019-05-03 13:54 | disposition home or self-care (01) | DRG 192 ==
LOC: ED 15:39 → 1N 04-29 02:00 → SUATTDRO 04-29 02:00 → INTOOBSV 04-29 02:00 → OBSVTOIN 04-29 02:00
PROVIDERS: ADMIT Internal Medicine; ATTEND Internal Medicine

== ENCOUNTER 2019-09-28 15:26 | Inpatient (IN) ==
[2019-09-28] MEDS ORDERED: TYLENOL PO PRN (16:02)
[2019-09-28] MEDS ORDERED: PHENERGAN IV PRN (16:02)
[2019-09-28] MEDS ORDERED: SODIUM CHLORIDE 0.9% INJ PRN (16:02)
--- NOTE | 2019-09-28 16:25 | Diag Imaging Result Doc PS360 ---
EXAM: CHEST-2 VIEWS HISTORY: COPD FLAREUP TECHNIQUE: Two views COMPARISON: 05/01/2019 FINDINGS: The lungs are hyperexpanded. No cardiomegaly. The vessels are small. No infiltrates. No pleural effusions. IMPRESSION: Emphysema Electronically signed by Nathaniel Hernandez 09/28/2019 4:22 PM
[2019-09-28] MEDS: SOLU-MEDROL IV SCH ×2 (17:01→21:32)
[2019-09-28 17:03] LABS: ALLEN TEST YES; BE 4.2 mmoll (-3.0-3.0); BLOOD TYPE ARTERIAL; METHB 0.5 % (0.0-1.5); O2(CT) 19.7 mL/dL (15.0-23.0); O2HB 92.5 % (95.0-99.0); PCO2(98.6) 40 mmHg (35-45); PO2(98.6) 63 mmHg (60-100); SAMPLE BLOOD; SAO2 93.7 % (95.0-100.0); THB 15.2 g/dL (11.5-17.4); pH(98.6) 7.46 (7.35-7.45)
[2019-09-28 17:33] LABS: HEMATOCRIT 43.7 % (42.0-52.0); HEMOGLOBIN 15.4 g/dL (14.0-18.0); MCH 30.4 PG (27-31); MCHC 35.2 g/dL (33-37); MCV 86.4 FL (81-99); MPV 11.1 FL (7.4-10.4); RBC 5.06 XMIL (4.7-6.1); RDW 13.8 % (11.5-14.5); WBC 6.66 X1000 (4.8-10.8)
[2019-09-28 17:49] LABS: AGAP 15; BUN 8 mg/dL (8-22); CALCIUM 10.4 mg/dL (8.8-10.2); CHLORIDE 101 mmol/L (98-107); COSMO 285; CREATININE 0.8 mg/dL (0.7-1.2); ESTIMATED GFR > 60; GLUCOSE 125 mg/dL (70-104); POTASSIUM 2.9 mmol/L (3.5-5.1); SODIUM 143 mmol/L (136-145); TCO2 27 mmol/L (25-35)
[2019-09-28] MEDS: LOVENOX SUBQ SCH (17:55)
[2019-09-28] MEDS: DUONEB (A & A) INH SCH ×2 (19:20→23:04)
[2019-09-28] MEDS: SYMBICORT 160/4.5 MICROGM INHALER INH SCH (19:20)
[2019-09-28] MEDS: DESYREL PO PRN (21:31)
[2019-09-28] MEDS: EFFEXOR XR PO SCH (21:34)
[2019-09-28] MEDS: PRAVACHOL PO SCH (21:34)
[2019-09-29] MEDS: DUONEB (A & A) INH SCH ×6 (03:35→22:44)
[2019-09-29] MEDS: SOLU-MEDROL IV SCH ×5 (04:54→22:32)
[2019-09-29] MEDS: SPIRIVA INH SCH (08:20)
[2019-09-29] MEDS: SYMBICORT 160/4.5 MICROGM INHALER INH SCH ×2 (08:20→19:29)
[2019-09-29] MEDS: NORVASC PO SCH (08:33)
[2019-09-29] MEDS: PEPCID PO SCH (08:35)
[2019-09-29] MEDS ORDERED: KLOR-CON PO ONE (10:37)
--- NOTE | 2019-09-29 11:05 | PROGRESS NOTE ---
DATE: 09/29/2019 SUBJECTIVE: Mr. Tariq was admitted to [facility] with an acute chronic obstructive pulmonary disease exacerbation. Clinically, he is breathing more comfortably this morning. He has less wheezing. OBJECTIVE: He is maintaining O2 saturations of 94 to 98 percent on room air. He continues with mild pleuritic chest pain and a persistent nonproductive cough. Blood pressure has been stable. Systolic blood pressures have ranged from 123 to 142, whereas his diastolic blood pressures have ranged from 67 to 81 temperature. Temperature 98 degrees, pulse 83 respirations 18, BP 142/81. CV regular rate and rhythm. Lungs diffuse wheezing with forced expiration, but there is improved air movement. Abdomen soft, nontender with active bowel sounds. No hepatosplenomegaly. No abdominal bruits. ASSESSMENT AND PLAN: 1. Acute chronic obstructive pulmonary disease exacerbation. We will continue Symbicort 160/4.5 two puffs b.i.d., Spiriva 1 inhalation daily, IV Solu-Medrol and DuoNeb nebulizer treatments. His chest x-ray was negative for any infiltrates or pneumonia. 2. Hypertension. Blood pressure is stable. We will continue amlodipine 5 mg daily. 3. Hypokalemia. I will give him KCl 60 mEq by mouth x1 dose. cc: Edelmira Torres MD
[2019-09-29] MEDS: LOVENOX SUBQ SCH (15:50)
[2019-09-29] MEDS: DESYREL PO PRN (20:21)
[2019-09-29] MEDS: PRAVACHOL PO SCH (20:21)
[2019-09-29] MEDS: EFFEXOR XR PO SCH (20:21)
[2019-09-30] MEDS: DUONEB (A & A) INH SCH ×6 (03:41→22:32)
[2019-09-30] MEDS: SOLU-MEDROL IV SCH ×4 (03:53→20:07)
[2019-09-30 06:59] LABS: AGAP 12; BUN 23 mg/dL (8-22); CALCIUM 10.1 mg/dL (8.8-10.2); CHLORIDE 102 mmol/L (98-107); COSMO 291; ESTIMATED GFR > 60; GLUCOSE 177 mg/dL (70-104); POTASSIUM 3.6 mmol/L (3.5-5.1); SODIUM 142 mmol/L (136-145); TCO2 28 mmol/L (25-35)
[2019-09-30] MEDS: SPIRIVA INH SCH (08:00)
[2019-09-30] MEDS: SYMBICORT 160/4.5 MICROGM INHALER INH SCH ×2 (08:00→19:42)
[2019-09-30] MEDS: PEPCID PO SCH (08:48)
[2019-09-30] MEDS: NORVASC PO SCH (08:49)
[2019-09-30] MEDS ORDERED: BLISTEX MEDICATED BERRY LIP BALM TOP PRN (15:22)
[2019-09-30] MEDS: LOVENOX SUBQ SCH (15:24)
[2019-09-30] MEDS: EFFEXOR XR PO SCH (20:07)
[2019-09-30] MEDS: PRAVACHOL PO SCH (20:07)
[2019-09-30] MEDS: DESYREL PO PRN (22:47)
[2019-10-01] MEDS: SOLU-MEDROL IV SCH ×4 (03:26→21:03)
[2019-10-01] MEDS: DUONEB (A & A) INH SCH ×6 (03:29→22:52)
[2019-10-01] MEDS: SYMBICORT 160/4.5 MICROGM INHALER INH SCH ×2 (08:11→19:44)
[2019-10-01] MEDS: SPIRIVA INH SCH (08:11)
--- NOTE | 2019-10-01 08:38 | PROGRESS NOTE ---
DATE: 10/01/2019 SUBJECTIVE: Mr. Tariq is feeling better. He feels like he is coughing up. He is coughing up some beige, thicker phlegm. Still has some wheezing. OBJECTIVE: Vital Signs: Temp 98.4 degrees, pulse 84, respirations 17, blood pressure 135/84. HEENT: Pupils are equal and round. Lungs: Clear in all lung guevara. Cardiovascular: Regular rhythm and rate without murmur or S3. Urine output was 1300 mL. ASSESSMENT AND PLAN: 1. Chronic obstructive pulmonary disease exacerbation with bronchospasm. He is doing much better. He is on Symbicort 160/4.5 two puffs twice a day and Spiriva once a day. He is on intravenous Solu-Medrol and getting DuoNebs. I think most of this is probably pollen driven and postnasal drainage. 2. Hypertension. 3. Hypokalemia, which has been supplemented. He got lab on 09/30/2019. Potassium is 3.6. Lactate level has been a little bit high, but he has never appeared septic, so continue his present medications. I expect he might get to go home tomorrow. cc: MD Edelmira Black MD
[2019-10-01] MEDS: PEPCID PO SCH (08:51)
[2019-10-01] MEDS: NORVASC PO SCH (08:51)
[2019-10-01] MEDS: LOVENOX SUBQ SCH (15:16)
[2019-10-01] MEDS: PRAVACHOL PO SCH (21:03)
[2019-10-01] MEDS: EFFEXOR XR PO SCH (21:03)
[2019-10-01] MEDS: DESYREL PO PRN (23:53)
[2019-10-02] MEDS: SOLU-MEDROL IV SCH ×2 (02:30→09:46)
[2019-10-02] MEDS: DUONEB (A & A) INH SCH ×2 (03:37→07:52)
[2019-10-02] MEDS: SPIRIVA INH SCH (07:51)
[2019-10-02] MEDS: SYMBICORT 160/4.5 MICROGM INHALER INH SCH (07:52)
[2019-10-02] MEDS: PEPCID PO SCH (09:45)
[2019-10-02] MEDS: NORVASC PO SCH (09:46)
[2019-10-02 11:28] VITALS: BP 125/79
--- NOTE | 2019-10-02 12:43 | DISCHARGE SUMMARY ---
ADMISSION DATE: 09/28/2019 DISCHARGE DATE: 10/02/2019 HISTORY OF PRESENT ILLNESS: Mr. Melendez is a 74-year-old presented on 09/28/2019 and discharged on 10/02/2019. He is a patient of Dr. Zay Torres. He is a 74-year-old with a history of multiple medical problems including essential hypertension, alcoholism, depression, COPD. He is well known to Dr. Torres. He had a 3-day history of increasing shortness of breath, increased work of breathing, cough productive of clear sputum, pleuritic chest pain and deep inspiration fits of coughing, general malaise. He was put in the hospital back on April 29 through May 03. At that time he had acute COPD exacerbation. He does not have any upper respiratory tract symptoms and no sign of infection such as fever, chills, nasal congestion, or sore throat. PAST MEDICAL HISTORY: 1. Hypertension. 2. COPD. 3. Hyperlipidemia. 4. Depression. PAST SURGICAL HISTORY: 1. Status post small bowel resection. 2. Inguinal hernia repair. 3. Orthopedic surgery, left ACL repair and repair of torn rotator cuff. HOSPITAL COURSE: The patient was admitted to the hospital and started on some bronchodilators and he did have cardiology evaluate. He had a pulmonary arteriogram, no evidence of pulmonary emboli, basilar atelectasis, questionable distal esophagitis and COPD. Cardiology was asked to see. Dr. Ya evaluated and checked an echocardiogram and EKG. Started him on some prednisone. He also is on an H2 wilfrido. Echocardiogram done on April 30 was pretty unremarkable. Left ventricular size was normal. Ejection fraction was 55% to 60%. No significant valvular dysfunction. No significant elevation in PA pressure. He did have some pulmonic insufficiency which is mild. The patient showed steady improvement. He just felt a lot of chest congestion, felt like he was able to cough up a little bit more, but felt he was ready go home on 10/02/2019. DISCHARGE INSTRUCTIONS/MEDICATIONS: We will send him home on Symbicort 160/4.5 two puffs twice a day, Pepcid 40 mg a day. I will put him on Medrol Dosepak. I am going to give him a Z-Derick as well just to help with bronchial irritation and inflammation. He will be on Pravachol 80 mg a day, Spiriva 1 puff daily. He takes Effexor XR 150 mg every night at bedtime, and he takes trazodone 100 mg every night at bedtime p.r.n. I have him on a Medrol Dosepak, and he will follow up with Dr. Torres in a couple of weeks. Right now, we are kind of in contact isolation as a [facility], and so it is important I explained to him to try and stay at home and keep his risk for exposure to Coronavirus Disease 2019 low. I see no evidence that he has any viral infection at this point. cc: MD Edelmira Black MD
== END 2019-10-02 14:00 | disposition home or self-care (01) | DRG 192 ==
LOC: DIRADM 15:26 → EDIPHOLD 15:57 → 3N 18:50
PROVIDERS: ADMIT Internal Medicine; ATTEND Internal Medicine